=== PATIENT | female | born 1945 | race African-American/Black ===

== ENCOUNTER 2020-08-05 04:29 | Day surgery (SDC) | payer OTHER ==
[2020-08-04 11:24] VITALS: BMI 31.8
[2020-08-05] MEDS ORDERED: HEPARIN NA (PORCINE) 5,000 UNITS/ML 1ML VIAL ONE (07:17)
[2020-08-05] MEDS ORDERED: LIDOCAINE HCL 1%, 10 MG/ML (20ML VIAL) ONE (07:17)
[2020-08-05] MEDS ORDERED: PROPOFOL 20 ML ONE (07:26)
[2020-08-05] MEDS ORDERED: MIDAZOLAM HCL 2 MG/2 ML SINGLE DOSE VIAL ONE (07:26)
[2020-08-05] MEDS ORDERED: DEXTROSE 50%-WATER 25 GM/50 ML DISP.SYRIN ONE (07:39)
[2020-08-05] MEDS ORDERED: LIDOCAINE HCL 1%, 10 MG/ML (20ML VIAL) INF ONE (08:00)
[2020-08-05] MEDS ORDERED: EPHEDRINE SULFATE/0.9% NACL/PF 50 MG/10 ML SYRINGE NR ONE (08:11)
[2020-08-05] MEDS ORDERED: ONDANSETRON 4 MG/2 ML VIAL IVPUSH PRN (09:49)
[2020-08-05 12:39] VITALS: BP 148/67; PULSE 69; TEMP 97.9
== END 2020-08-05 12:05 | disposition home or self-care (01) ==
LOC: JASU-SURG 04:29
PROVIDERS: ATTEND Surgery Vascular Surgery
PROC: 047L3Z1 Dilation of Left Femoral Artery using Drug-Coated Balloon, Percutaneous Approach (ICD-10-PCS; principal; 2020-08-05 07:30)
DX: I70.212 Atherosclerosis of native arteries of extremities with intermittent claudication, left leg (principal); I10 Essential (primary) hypertension; E11.9 Type 2 diabetes mellitus without complications; J44.9 Chronic obstructive pulmonary disease, unspecified; Z79.4 Long term (current) use of insulin
CPT/HCPCS: 37224; C2623; 76000-TC-FY; 82962; 94760; J1644

== ENCOUNTER 2021-02-25 05:55 | Day surgery (SDC) | payer OTHER ==
[2021-02-14 15:59] VITALS: BMI 32.9
[2021-02-25] MEDS ORDERED: ROPIVACAINE HCL/PF 100 MG/20 ML VIAL ONE (06:33)
[2021-02-25] MEDS ORDERED: MIDAZOLAM HCL 2 MG/2 ML SINGLE DOSE VIAL ONE ×2 (06:33→08:03)
[2021-02-25] MEDS ORDERED: EPINEPHrine 1:1,000 1 MG/1 ML - 30ML VIAL (INJECTION) ONE (07:09)
[2021-02-25] MEDS ORDERED: BUPIVACAINE HCL/EPINEPHRINE/PF 30 ML VIAL IJ ONE (07:09)
[2021-02-25] MEDS ORDERED: PROPOFOL 20 ML ONE ×4 (07:16→09:15)
[2021-02-25] MEDS ORDERED: PHENYLEPHRINE HCL 10 MG/1 ML SINGLE DOSE VIAL ONE ×2 (07:16→08:01)
[2021-02-25] MEDS ORDERED: ePHEDrine SULFATE 50 MG/1 ML AMPULE ONE (07:17)
[2021-02-25] MEDS ORDERED: KETAMINE HCL 200 MG/20 ML VIAL ONE (08:05)
[2021-02-25] MEDS ORDERED: BUPIVACAINE 0.25% /EPI 1:200,000 10 ML VIAL NR ONE (08:33)
[2021-02-25] MEDS ORDERED: oxyCODONE HCL 5 MG TABLET PO PRN ×2 (09:17)
[2021-02-25] MEDS ORDERED: ONDANSETRON 4 MG/2 ML VIAL IVPUSH PRN (09:17)
[2021-02-25] MEDS ORDERED: METOPROLOL TARTRATE 5 MG/5 ML VIAL ONE (09:18)
[2021-02-25] MEDS ORDERED: ceFAZolin SODIUM 1 GM VIAL ONE (09:18)
[2021-02-25] MEDS ORDERED: LIDOCAINE HCL/PF 2% SDV 5ML VIAL ONE (09:18)
[2021-02-25] MEDS ORDERED: GLYCOPYRROLATE 0.2 MG/1 ML VIAL ONE (09:18)
[2021-02-25] MEDS ORDERED: LACTATED RINGERS SOLUTION 1,000 ML IV SCH (09:30)
[2021-02-25 12:13] VITALS: TEMP 98.1
[2021-02-25 12:26] VITALS: BP 128/53; PULSE 90
== END 2021-02-25 12:15 | disposition home or self-care (01) ==
LOC: FASU 05:55
PROVIDERS: ATTEND Orthopaedic Surgery
PROC: 0RHK48Z Insertion of Spacer into Left Shoulder Joint, Percutaneous Endoscopic Approach (ICD-10-PCS; 2021-02-25)
PROC: 0LQ24ZZ Repair Left Shoulder Tendon, Percutaneous Endoscopic Approach (ICD-10-PCS; principal; 2021-02-25 08:05)
PROC: 0RNK4ZZ Release Left Shoulder Joint, Percutaneous Endoscopic Approach (ICD-10-PCS; 2021-02-25 08:05)
PROC: 0RBK4ZZ Excision of Left Shoulder Joint, Percutaneous Endoscopic Approach (ICD-10-PCS; 2021-02-25 08:05)
DX: M75.122 Complete rotator cuff tear or rupture of left shoulder, not specified as traumatic (principal); M66.812 Spontaneous rupture of other tendons, left shoulder; S43.432A Superior glenoid labrum lesion of left shoulder, initial encounter; X58.XXXA Exposure to other specified factors, initial encounter; Y93.9 Activity, unspecified; Y92.9 Unspecified place or not applicable; M94.212 Chondromalacia, left shoulder; M65.812 Other synovitis and tenosynovitis, left shoulder; M75.02 Adhesive capsulitis of left shoulder; M19.012 Primary osteoarthritis, left shoulder
CPT/HCPCS: 82962; 94760

== ENCOUNTER 2021-07-20 22:06 | Observation (INO) | payer OTHER ==
[2021-07-20 23:48] LABS: BASO % 0.7 % (0-2.0); EOS % 0.5 % (0-4.5); HEMATOCRIT 38.8 % (32.4-45.2); LYMPH % 19.2 % (8-40); MCH 31.4 pg (25.7-33.7); MCHC 33.6 g/dl (32.0-36.0); MEAN CELL VOLUME 93.2 fl (80-96); MONO % 8.4 % (3.8-10.2); NEUT % 71.2 % (42.8-82.8); PLATELET COUNT 259 10^3/uL (134-434); RBC 4.16 M/mm3 (3.60-5.2); RDW 13.8 % (11.6-15.6); WHITE BLOOD COUNT 8.6 K/mm3 (4.0-10.0)
[2021-07-20] MEDS ORDERED: DEXTROSE 50%-WATER - 25 GM/50 ML VIAL IVPUSH ONE (23:51)
[2021-07-20 23:54] LABS: INR 1.03 (0.83-1.09); PROTHROMBIN TIME (PATIENT) 11.9 SEC (9.7-13.0)
[2021-07-20 23:57] LABS: ACTIVATED PTT 28.6 SECONDS (25.2-36.5)
[2021-07-21 00:05] LABS: CHLORIDE 106 mmol/L (98-107); SODIUM 142 mmol/L (136-145)
[2021-07-21 00:08] LABS: ALBUMIN 3.4 g/dl (3.4-5.0); ANION GAP 6 MMOL/L (8-16); BLOOD UREA NITROGEN 13.4 mg/dL (7-18); CALCIUM 8.9 mg/dL (8.5-10.1); CO2 30 mmol/L (21-32)
[2021-07-21 00:11] LABS: CREATININE 0.5 mg/dL (0.55-1.3); SGOT/AST 30 U/L (15-37); SGPT/ALT 38 U/L (13-61)
[2021-07-21 00:13] LABS: BILIRUBIN,TOTAL 0.2 mg/dL (0.2-1); TOT PROT 7.1 g/dl (6.4-8.2)
[2021-07-21 00:14] LABS: ALK PHOS 116 U/L (45-117)
[2021-07-21 00:16] LABS: N-TERMINAL BNP 204.9 pg/ml (5-450)
[2021-07-21] MEDS ORDERED: DEXTROSE 50%-WATER - 25 GM/50 ML VIAL ONE (00:23)
[2021-07-21 00:47] LABS: GLUCOSE,RANDOM 49 mg/dL (74-106)
[2021-07-21] MEDS ORDERED: ACETAMINOPHEN 1000 MG/100 ML BAG IVPB ONE (00:54)
[2021-07-21] MEDS ORDERED: ACETAMINOPHEN INJECTION 100 ML IVPB ONE (01:16)
[2021-07-21 01:42] LABS: EPI CELLS 18 /uL (0-25.1); HYALINE CASTS 1 /uL (0-3.1); PH,URINE 6.5 (5.0-8.0); URINE APPEARANCE CLEAR; URINE BACTERIA 88 /uL (0-1359); URINE BILIRUBIN NEGATIVE (NEGATIVE); URINE COLOR YELLOW; URINE GLUCOSE (UA) NEGATIVE (NEGATIVE); URINE KETONE NEGATIVE (NEGATIVE); URINE LEUK ESTERASE 1+ (NEGATIVE); URINE NITRITE NEGATIVE (NEGATIVE); URINE PROTEIN 2+ (NEGATIVE); URINE RBC 3 /uL (0-23.9); URINE UROBILINOGEN 0.2 mg/dL (0.2-1.0); URINE WBC 25 /uL (0-25.8)
[2021-07-21] MEDS ORDERED: POTASSIUM CHLORIDE ORAL LIQUID 20 MEQ/15 ML PO ONE ×2 (02:37→03:49)
[2021-07-21] MEDS ORDERED: DEXTROSE 5%-WATER - 1,000 ML IV SCH (04:15)
[2021-07-21] MEDS ORDERED: POTASSIUM CHLORIDE ORAL LIQUID 20 MEQ/15 ML ONE (04:33)
[2021-07-21] MEDS ORDERED: KCL 10 MEQ IVPB 10 MEQ/100 ML INFUS.BAG IVPB ONE (04:33)
[2021-07-21] MEDS ORDERED: ALBUTEROL SO4 HFA INHALER IH PRN (04:56)
[2021-07-21] MEDS: KCL 10 MEQ IVPB 10 MEQ/100 ML INFUS.BAG IVPB SCH ×3 (05:07→10:45)
[2021-07-21 07:50] LABS: BASO % 0.5 % (0-2.0); EOS % 0.3 % (0-4.5); HEMATOCRIT 40.7 % (32.4-45.2); HEMOGLOBIN 13.5 GM/dL (10.7-15.3); LYMPH % 25.4 % (8-40); MCHC 33.1 g/dl (32.0-36.0); MEAN CELL VOLUME 93.8 fl (80-96); MEAN PLT VOLUME 8.1 fl (7.5-11.1); MONO % 7.5 % (3.8-10.2); NEUT % 66.3 % (42.8-82.8); PLATELET COUNT 278 10^3/uL (134-434); RBC 4.34 M/mm3 (3.60-5.2); RDW 14.1 % (11.6-15.6); WHITE BLOOD COUNT 6.4 K/mm3 (4.0-10.0)
[2021-07-21 07:57] LABS: CHLORIDE 109 mmol/L (98-107); SODIUM 142 mmol/L (136-145)
[2021-07-21 08:02] LABS: CHOLESTEROL 149 mg/dL (50-200)
[2021-07-21 08:03] LABS: TRIGLYCERIDES 84 mg/dL (0-150)
[2021-07-21 08:04] LABS: LDL CHOLESTEROL (ONLY SJRH) 77 mg/dL (5-100)
[2021-07-21 08:05] LABS: ALBUMIN 3.4 g/dl (3.4-5.0); ANION GAP 6 MMOL/L (8-16); BLOOD UREA NITROGEN 9.6 mg/dL (7-18); CALCIUM 9.1 mg/dL (8.5-10.1); CO2 28 mmol/L (21-32); GLUCOSE,RANDOM 194 mg/dL (74-106); HDL CHOLESTEROL 62 mg/dL (40-60); MAGNESIUM 2.2 mg/dL (1.8-2.4)
[2021-07-21 08:08] LABS: CREATININE 0.5 mg/dL (0.55-1.3); PHOSPHOROUS 2.8 mg/dL (2.5-4.9); SGPT/ALT 37 U/L (13-61)
[2021-07-21 08:09] LABS: SGOT/AST 29 U/L (15-37)
[2021-07-21 08:10] LABS: BILIRUBIN,TOTAL 0.3 mg/dL (0.2-1); TOT PROT 7.1 g/dl (6.4-8.2)
[2021-07-21 08:11] LABS: ALK PHOS 121 U/L (45-117)
[2021-07-21] MEDS ORDERED: KCL 10 MEQ IVPB 20 MEQ/200 ML INFUS.BAG IVPB ONE (08:17)
[2021-07-21] MEDS ORDERED: amLODIPine BESYLATE 5 MG TABLET (FP) ONE (08:58)
[2021-07-21] MEDS ORDERED: VALSARTAN 80 MG TABLET ONE (08:58)
[2021-07-21] MEDS ORDERED: ASPIRIN COATED 81 MG TABLET.EC ONE (08:58)
[2021-07-21] MEDS ORDERED: ENOXAPARIN NA (PORCINE) 40 MG/0.4 ML DISP.SYRIN SQ ONE (08:59)
[2021-07-21] MEDS ORDERED: GABAPENTIN 400 MG CAPSULE ONE ×3 (08:59→16:32)
[2021-07-21] MEDS ORDERED: metoPROLOL SUCCINATE 25 MG TAB.SR.24H (FP) PO ONE (09:00)
[2021-07-21] MEDS ORDERED: CLOPIDOGREL BISULFATE 75 MG TABLET (FP) ONE (09:00)
[2021-07-21] MEDS ORDERED: ASCORBIC ACID 500 MG TABLET (FP) ONE (09:01)
[2021-07-21] MEDS: CLOPIDOGREL BISULFATE 75 MG TABLET (FP) PO SCH (10:50)
[2021-07-21] MEDS: ENOXAPARIN NA (PORCINE) 40 MG/0.4 ML DISP.SYRIN SQ SCH (10:50)
[2021-07-21] MEDS: metoPROLOL SUCCINATE 25 MG TAB.SR.24H (FP) PO SCH (10:50)
[2021-07-21] MEDS: ASPIRIN COATED 81 MG TABLET.EC PO SCH (10:50)
[2021-07-21] MEDS: ASCORBIC ACID 500 MG TABLET (FP) PO SCH (10:50)
[2021-07-21] MEDS: amLODIPine BESYLATE 5 MG TABLET (FP) PO SCH ×2 (10:50→21:09)
[2021-07-21] MEDS: GABAPENTIN 400 MG CAPSULE PO SCH ×4 (10:50→21:09)
[2021-07-21] MEDS: BUDESONIDE/FORMETEROL FUMARATE 160/4.5 mcg INHALER IH SCH ×2 (10:50→22:25)
[2021-07-21] MEDS ORDERED: DEXTROSE 50%-WATER - 25 GM/50 ML VIAL IVPUSH PRN (15:17)
[2021-07-21] MEDS ORDERED: ACETAMINOPHEN 325 MG TABLET (FP) ONE (15:29)
[2021-07-21] MEDS: ACETAMINOPHEN 325 MG TABLET (FP) PO PRN ×2 (15:40→21:08)
[2021-07-21] MEDS ORDERED: INSULIN SLIDING SCALE (NOVOLOG) 1 VIAL SQ SCH (16:30)
[2021-07-21] MEDS: INSULIN SLIDING SCALE (NOVOLOG) 1 VIAL SQ SCH (17:03)
[2021-07-21 18:08] VITALS: BMI 31.9
[2021-07-21] MEDS ORDERED: LATANOPROST 0.005% OPHTH SOLN 2.5ML BOTTLE OU SCH (22:00)
[2021-07-21] MEDS ORDERED: ATORVASTATIN CA 10 MG TABLET (FP) PO SCH (22:00)
[2021-07-22] MEDS ORDERED: ACETAMINOPHEN 325 MG TABLET (FP) PO ONE (05:45)
[2021-07-22] MEDS ORDERED: oxyCODONE HCL 5 MG TABLET PO ONE (05:45)
[2021-07-22] MEDS: INSULIN (LEVEMIR) 100 UNITS/ML UNITS SQ SCH ×2 (06:13→11:37)
[2021-07-22] MEDS: INSULIN SLIDING SCALE (NOVOLOG) 1 VIAL SQ SCH ×2 (06:14→11:37)
[2021-07-22] MEDS ORDERED: INSULIN (NOVOLOG) ASPART 100 UNITS/ML 10ML VIAL SQ SCH (08:00)
[2021-07-22 08:52] LABS: BASO % 0.6 % (0-2.0); EOS % 0.8 % (0-4.5); HEMATOCRIT 40.5 % (32.4-45.2); HEMOGLOBIN 13.6 GM/dL (10.7-15.3); LYMPH % 32.8 % (8-40); MCHC 33.5 g/dl (32.0-36.0); MEAN CELL VOLUME 92.6 fl (80-96); MEAN PLT VOLUME 7.5 fl (7.5-11.1); MONO % 9.1 % (3.8-10.2); NEUT % 56.7 % (42.8-82.8); PLATELET COUNT 288 10^3/uL (134-434); RBC 4.37 M/mm3 (3.60-5.2); RDW 14.2 % (11.6-15.6); WHITE BLOOD COUNT 5.6 K/mm3 (4.0-10.0)
[2021-07-22] MEDS: amLODIPine BESYLATE 5 MG TABLET (FP) PO SCH (09:08)
[2021-07-22] MEDS: ASCORBIC ACID 500 MG TABLET (FP) PO SCH (09:08)
[2021-07-22] MEDS: CLOPIDOGREL BISULFATE 75 MG TABLET (FP) PO SCH (09:08)
[2021-07-22] MEDS: metoPROLOL SUCCINATE 25 MG TAB.SR.24H (FP) PO SCH (09:08)
[2021-07-22] MEDS: ASPIRIN COATED 81 MG TABLET.EC PO SCH (09:08)
[2021-07-22] MEDS: GABAPENTIN 400 MG CAPSULE PO SCH ×2 (09:09→13:20)
[2021-07-22] MEDS: ENOXAPARIN NA (PORCINE) 40 MG/0.4 ML DISP.SYRIN SQ SCH (09:09)
[2021-07-22] MEDS ORDERED: PATIENT'S OWN MEDICATION (NON-FORMULARY) (Oxycodone Hcl/Acetaminophen [Endocet 10-325 Mg T PO PRN (09:09)
[2021-07-22] MEDS: BUDESONIDE/FORMETEROL FUMARATE 160/4.5 mcg INHALER IH SCH (09:10)
[2021-07-22 09:12] LABS: BLOOD UREA NITROGEN 9.4 mg/dL (7-18)
[2021-07-22 09:15] LABS: CREATININE 0.5 mg/dL (0.55-1.3)
[2021-07-22] MEDS ORDERED: oxyCODONE HCL 5 MG TABLET PO PRN (09:45)
[2021-07-22] MEDS ORDERED: ACETAMINOPHEN 325 MG TABLET (FP) PO PRN (09:45)
[2021-07-22] MEDS ORDERED: ERGOCALCIFEROL (VIT D2) 50,000 UNIT (1.25 MG) CAPSULE PO SCH (10:00)
[2021-07-22 14:23] VITALS: BP 138/69; PULSE 76; TEMP 97.9
== END 2021-07-22 18:46 | disposition home or self-care (01) ==
LOC: JER 22:06 → JERBED 07-21 01:41 → J4S 07-21 18:55
PROVIDERS: ADMIT Internal Medicine; ATTEND Internal Medicine
PROC: 3E0337Z Introduction of Electrolytic and Water Balance Substance into Peripheral Vein, Percutaneous Approach (ICD-10-PCS; principal; 2021-07-21)
PROC: 3E023GC Introduction of Other Therapeutic Substance into Muscle, Percutaneous Approach (ICD-10-PCS; 2021-07-21)
PROC: 3E013VG Introduction of Insulin into Subcutaneous Tissue, Percutaneous Approach (ICD-10-PCS; 2021-07-21)
PROC: 3E033GC Introduction of Other Therapeutic Substance into Peripheral Vein, Percutaneous Approach (ICD-10-PCS; 2021-07-21)
DX: U07.1 COVID-19 (principal); I25.10 Atherosclerotic heart disease of native coronary artery without angina pectoris; I11.9 Hypertensive heart disease without heart failure; Z95.1 Presence of aortocoronary bypass graft; I73.9 Peripheral vascular disease, unspecified; E11.9 Type 2 diabetes mellitus without complications; R55 Syncope and collapse; E66.9 Obesity, unspecified; Z68.32 Body mass index [BMI] 32.0-32.9, adult; Z91.048 Other nonmedicinal substance allergy status; Z88.0 Allergy status to penicillin; Z88.6 Allergy status to analgesic agent; Z88.8 Allergy status to other drugs, medicaments and biological substances
CPT/HCPCS: 0241U-QW; 36415; 70450-TC; 71045-TC-FY; 72125-TC; 80048; 80053; 80061; 81003; 82550; 82553; 82962; 83036; 83735; 83880; 84100; 84443; 84484; 85025; 85610; 85730; 86140; 93005; 93010; 96361; 96365; 96367; 96372; 96375; 99285-25; G0378

== ENCOUNTER 2021-09-09 04:08 | Day surgery (SDC) | payer OTHER ==
[2021-09-07 10:49] VITALS: BMI 32.1
[2021-09-09] MEDS ORDERED: BUPIVACAINE HCL/PF 0.75% 10 ML VIAL ONE (07:24)
[2021-09-09] MEDS ORDERED: LIDOCAINE HCL/PF 1% SDV 5ML VIAL ONE (07:24)
[2021-09-09 09:28] VITALS: RESP 20
[2021-09-09] MEDS ORDERED: BUPIVACAINE HCL/PF 0.75% 10 ML VIAL NR ONE (12:00)
[2021-09-09] MEDS ORDERED: LIDOCAINE HCL 1%, 10 MG/ML (20ML VIAL) NR ONE (12:01)
[2021-09-09 12:18] VITALS: BP 159/72; PULSE 66; TEMP 98
== END 2021-09-09 12:46 | disposition home or self-care (01) ==
LOC: JASU-SURG 04:08
PROVIDERS: ATTEND Pain Medicine Pain Medicine
PROC: 3E0T33Z Introduction of Anti-inflammatory into Peripheral Nerves and Plexi, Percutaneous Approach (ICD-10-PCS; 2021-09-09)
PROC: 3E0T3BZ Introduction of Anesthetic Agent into Peripheral Nerves and Plexi, Percutaneous Approach (ICD-10-PCS; principal; 2021-09-09 11:30)
DX: M47.816 Spondylosis without myelopathy or radiculopathy, lumbar region (principal)
CPT/HCPCS: 76000-TC-FY

== ENCOUNTER 2021-10-11 04:29 | Day surgery (SDC) | payer OTHER ==
[2021-10-07 16:15] VITALS: BMI 31.8
[2021-10-11] MEDS ORDERED: BUPIVACAINE HCL/PF 0.75% 10 ML VIAL ONE (07:17)
[2021-10-11] MEDS ORDERED: LIDOCAINE HCL/PF 1% SDV 5ML VIAL ONE (07:17)
[2021-10-11 11:32] VITALS: TEMP 97.7
[2021-10-11] MEDS ORDERED: LIDOCAINE HCL 1% PRESERVATIVE FREE - 30ML VIAL IJ ONE (12:55)
[2021-10-11] MEDS ORDERED: BUPIVACAINE HCL/PF 0.75% 10 ML VIAL NR ONE (12:55)
[2021-10-11 14:59] VITALS: BP 112/55; PULSE 67; RESP 18
== END 2021-10-11 13:45 | disposition home or self-care (01) ==
LOC: JASU-SURG 04:29
PROVIDERS: ATTEND Pain Medicine Pain Medicine
PROC: BR16YZZ Fluoroscopy of Lumbar Facet Joint(s) using Other Contrast (ICD-10-PCS; 2021-10-11)
PROC: 3E0T3BZ Introduction of Anesthetic Agent into Peripheral Nerves and Plexi, Percutaneous Approach (ICD-10-PCS; principal; 2021-10-11 13:00)
DX: M47.816 Spondylosis without myelopathy or radiculopathy, lumbar region (principal)
CPT/HCPCS: 76000-TC-FY

== ENCOUNTER → 2021-11-25 | Day surgery (SDC) | payer OTHER ==
[~2021-11-25] MED LIST: BUPIVACAINE HCL/PF 0.75% 10 ML VIAL ONE; DEXAMETHASONE SOD PHOSPHATE 10 MG/1 ML VIAL ONE; LIDOCAINE HCL/PF 1% SDV 5ML VIAL ONE
== END | disposition home or self-care (01) ==
LOC: JASU-SURG 04:07
PROVIDERS: ATTEND Pain Medicine Pain Medicine
DX: Z53.8 Procedure and treatment not carried out for other reasons (principal)
CPT/HCPCS: J1100

== ENCOUNTER 2022-11-16 04:56 | Day surgery (SDC) | payer OTHER ==
[2022-11-15 11:52] VITALS: BMI 24.7
[2022-11-16] MEDS ORDERED: ceFAZolin SODIUM 1 GM VIAL IVPB ONE (08:28)
[2022-11-16] MEDS ORDERED: IOVERSOL 320 MG/ML ML IV ONE ×2 (08:30→10:55)
[2022-11-16] MEDS ORDERED: LIDOCAINE HCL 1%, 10 MG/ML (20ML VIAL) INF ONE ×2 (08:30→10:47)
[2022-11-16] MEDS ORDERED: HEPARIN NA (PORCINE) 5,000 UNITS/ML 1ML VIAL SQ ONE ×2 (08:31→10:55)
[2022-11-16] MEDS ORDERED: LIDOCAINE HCL 1%, 10 MG/ML (20ML VIAL) ONE ×2 (09:23→10:21)
[2022-11-16] MEDS ORDERED: HEPARIN NA (PORCINE) 5,000 UNITS/ML 1ML VIAL ONE ×2 (09:24→10:21)
[2022-11-16] MEDS ORDERED: DEXMEDETOMIDINE HCL 200 MCG/2 ML IVPB ONE (10:20)
[2022-11-16] MEDS ORDERED: ceFAZolin SODIUM 1 GM VIAL ONE (10:26)
[2022-11-16] MEDS ORDERED: SODIUM CHLORIDE 0.9% P/F 10 ML VIAL IJ ONE (10:26)
[2022-11-16] MEDS ORDERED: MIDAZOLAM HCL 2 MG/2 ML SINGLE DOSE VIAL ONE ×2 (10:42→10:51)
[2022-11-16] MEDS ORDERED: ONDANSETRON 4 MG/2 ML VIAL ONE (11:09)
[2022-11-16] MEDS ORDERED: PROTAMINE SULFATE 50 MG/5 ML VIAL ONE (11:28)
[2022-11-16] MEDS ORDERED: LACTATED RINGERS SOLUTION 1,000 ML IV SCH (12:00)
[2022-11-16 14:39] VITALS: RESP 20
[2022-11-16 15:59] VITALS: TEMP 97.8
[2022-11-16 16:05] VITALS: BP 122/60; PULSE 70
== END 2022-11-16 15:15 | disposition home or self-care (01) ==
LOC: JASU-SURG 04:56
PROVIDERS: ATTEND Surgery Vascular Surgery
PROC: 047L3Z1 Dilation of Left Femoral Artery using Drug-Coated Balloon, Percutaneous Approach (ICD-10-PCS; principal; 2022-11-16 10:30)
DX: I70.212 Atherosclerosis of native arteries of extremities with intermittent claudication, left leg (principal)
CPT/HCPCS: 37225; C2623; 36415; 76000-TC-FY; 82010; 82962; 94760; C1724; C1769; J1644

== ENCOUNTER 2023-07-24 12:57 | Inpatient (IN) | payer OTHER ==
[2023-07-24] MEDS ORDERED: ONDANSETRON 4 MG/2 ML VIAL ONE (13:48)
[2023-07-24] MEDS ORDERED: ACETAMINOPHEN INJECTION 100 ML IVPB ONE (13:48)
[2023-07-24] MEDS: ACETAMINOPHEN 1000 MG/100 ML BAG IVPB ONE (14:14)
[2023-07-24] MEDS: ONDANSETRON 4 MG/2 ML VIAL IVPUSH ONE (14:15)
[2023-07-24] MEDS: SODIUM CHLORIDE 1,000 ML IV STA ×2 (14:40→18:57)
[2023-07-24 14:48] LABS: HEMATOCRIT 48.2 % (32.4-45.2); HEMOGLOBIN 16.4 GM/dL (10.7-15.3); MCH 32.8 pg (25.7-33.7); MEAN CELL VOLUME 96.4 fl (80-96); MEAN PLT VOLUME 8.4 fl (7.5-11.1); PLATELET COUNT 248 10^3/uL (134-434); RDW 14.2 % (11.6-15.6); VENOUS O2 SATURATION 75.8 % (70-80); VENOUS PCO2 35.6 mmHg (38-52); VENOUS PH 7.358 (7.310-7.410); WHITE BLOOD COUNT 15.7 K/mm3 (4.0-10.0)
[2023-07-24 14:59] LABS: INR 1.09 (0.83-1.09); PROTHROMBIN TIME (PATIENT) 12.3 SEC (9.7-13.0)
[2023-07-24 15:02] LABS: ACTIVATED PTT 21.2 SECONDS (25.2-36.5)
[2023-07-24 15:09] LABS: CHLORIDE 100 mmol/L (98-107); POTASSIUM 4.9 mmol/L (3.5-5.1); SODIUM 137 mmol/L (136-145)
[2023-07-24 15:12] LABS: ANION GAP 17 mmol/L (4-13); CALCIUM 10.3 mg/dL (8.5-10.1); CO2 20 mmol/L (21-32); GLUCOSE,RANDOM 136 mg/dL (74-106)
[2023-07-24 15:13] LABS: ALBUMIN 4.4 g/dl (3.4-5.0); BLOOD UREA NITROGEN 12.3 mg/dL (7-18)
[2023-07-24 15:15] LABS: CREATININE 0.6 mg/dL (0.55-1.3); SGOT/AST 40 U/L (15-37); SGPT/ALT 30 U/L (13-61)
[2023-07-24 15:17] LABS: TOT PROT 8.4 g/dl (6.4-8.2)
[2023-07-24 15:18] LABS: ALK PHOS 166 U/L (45-117)
[2023-07-24 15:19] LABS: LACTIC ACID 2.2 mmol/L (0.4-2.0)
[2023-07-24 15:25] LABS: ANISOCYTOSIS 0; MACROCYTOSIS 0
[2023-07-24 15:27] LABS: PLATELET ESTIMATE ADEQUATE
[2023-07-24 17:22] LABS: EPI CELLS 3 /uL (0-25.1); HYALINE CASTS 0 /uL (0-3.1); URINE APPEARANCE CLEAR; URINE BACTERIA 75 /uL (0-1359); URINE BILIRUBIN NEGATIVE (NEGATIVE); URINE COLOR YELLOW; URINE GLUCOSE (UA) 3+ (NEGATIVE); URINE KETONE 4+ (NEGATIVE); URINE LEUK ESTERASE NEGATIVE (NEGATIVE); URINE NITRITE NEGATIVE (NEGATIVE); URINE PROTEIN 2+ (NEGATIVE); URINE RBC 6 /uL (0-23.9); URINE UROBILINOGEN 0.2 mg/dL (0.2-1.0); URINE WBC 4 /uL (0-25.8)
[2023-07-24] MEDS: INSULIN ASPART SLIDING SCALE (NOVOLOG) 1 VIAL SQ SCH (22:32)
[2023-07-25] MEDS: SODIUM CHLORIDE 1,000 ML IV SCH (00:30)
[2023-07-25] MEDS: GABAPENTIN 400 MG CAPSULE PO SCH (00:30)
[2023-07-25] MEDS: ACETAMINOPHEN 1000 MG/100 ML BAG IVPB PRN (00:53)
[2023-07-25 02:16] VITALS: BMI 21.9
[2023-07-25 07:25] LABS: HEMATOCRIT 42.6 % (32.4-45.2); HEMOGLOBIN 14.2 GM/dL (10.7-15.3); MCH 32.2 pg (25.7-33.7); MCHC 33.3 g/dl (32.0-36.0); MEAN PLT VOLUME 8.4 fl (7.5-11.1); PLATELET COUNT 251 10^3/uL (134-434); RBC 4.39 M/mm3 (3.60-5.2); WHITE BLOOD COUNT 22.6 K/mm3 (4.0-10.0)
[2023-07-25 07:32] LABS: POTASSIUM 3.2 mmol/L (3.5-5.1)
[2023-07-25 07:36] LABS: CALCIUM 9.3 mg/dL (8.5-10.1)
[2023-07-25 07:37] LABS: BLOOD UREA NITROGEN 15.7 mg/dL (7-18); MAGNESIUM 2.2 mg/dL (1.8-2.4)
[2023-07-25 07:40] LABS: CREATININE 0.5 mg/dL (0.55-1.3)
[2023-07-25 07:41] LABS: BILIRUBIN,TOTAL 0.9 mg/dL (0.2-1); TOT PROT 6.5 g/dl (6.4-8.2)
[2023-07-25 07:43] LABS: ALBUMIN 3.3 g/dl (3.4-5.0)
[2023-07-25] MEDS: KCL 10 MEQ IVPB 10 MEQ/100 ML INFUS.BAG IVPB SCH (08:56)
[2023-07-25] MEDS: ONDANSETRON 4 MG/2 ML VIAL IVPUSH PRN (09:15)
[2023-07-25] MEDS: AZTREONAM 1 GM in DEXTROSE 5%-WATER - 50 ML IVPB ONE (09:15)
[2023-07-25] MEDS: amLODIPine BESYLATE 5 MG TABLET (FP) PO SCH (09:15)
[2023-07-25] MEDS: CLOPIDOGREL BISULFATE 75 MG TABLET (FP) PO SCH (09:15)
[2023-07-25] MEDS: metoPROLOL SUCCINATE 25 MG TAB.SR.24H (FP) PO SCH (09:15)
[2023-07-25] MEDS: ASPIRIN COATED 81 MG TABLET.EC PO SCH (09:16)
[2023-07-25 12:20] VITALS: RESP 18
[2023-07-25] MEDS: ACETAMINOPHEN 1000 MG/100 ML BAG IVPB SCH (12:56)
[2023-07-25] MEDS: FAMOTIDINE 20 MG/50 ML IVPB 20 MG/50 ML MG IVPB ONE (15:14)
[2023-07-25] MEDS: DEXTROSE 5%-0.45% SALINE 1,000 ML IV SCH (17:01)
[2023-07-25 17:37] LABS: POTASSIUM 3.6 mmol/L (3.5-5.1)
[2023-07-25 17:41] LABS: BLOOD UREA NITROGEN 18.2 mg/dL (7-18); CALCIUM 9.5 mg/dL (8.5-10.1)
[2023-07-25 17:42] LABS: ALBUMIN 3.2 g/dl (3.4-5.0)
[2023-07-25 17:45] LABS: CREATININE 0.6 mg/dL (0.55-1.3)
[2023-07-25 17:46] LABS: BILIRUBIN,TOTAL 0.8 mg/dL (0.2-1); TOT PROT 6.4 g/dl (6.4-8.2)
[2023-07-25] MEDS: MEROPENEM 1 GM in DEXTROSE 5%-WATER 100 ML IVPB SCH (18:05)
[2023-07-25] MEDS: POTASSIUM CHLORIDE ORAL LIQUID 20 MEQ/15 ML PO ONE (18:05)
[2023-07-25] MEDS: ATORVASTATIN CA 10 MG TABLET (FP) PO SCH (21:34)
[2023-07-25] MEDS: LATANOPROST 0.005% OPHTH SOLN 2.5ML BOTTLE OU SCH (22:08)
[2023-07-25 22:11] LABS: POTASSIUM 3.6 mmol/L (3.5-5.1)
[2023-07-25 22:13] LABS: BLOOD UREA NITROGEN 16.9 mg/dL (7-18); CALCIUM 9.3 mg/dL (8.5-10.1)
[2023-07-25 22:17] LABS: CREATININE 0.6 mg/dL (0.55-1.3)
[2023-07-26 10:47] LABS: HEMATOCRIT 41.6 % (32.4-45.2); MCH 32.6 pg (25.7-33.7); MCHC 33.7 g/dl (32.0-36.0); MEAN CELL VOLUME 96.6 fl (80-96); MEAN PLT VOLUME 8.2 fl (7.5-11.1); PLATELET COUNT 230 10^3/uL (134-434); RBC 4.31 M/mm3 (3.60-5.2); RDW 14.3 % (11.6-15.6); WHITE BLOOD COUNT 17.7 K/mm3 (4.0-10.0)
[2023-07-26 11:08] LABS: POTASSIUM 3.4 mmol/L (3.5-5.1)
[2023-07-26 11:29] LABS: ALBUMIN 2.8 g/dl (3.4-5.0); BLOOD UREA NITROGEN 14.8 mg/dL (7-18)
[2023-07-26 11:30] LABS: CALCIUM 9.4 mg/dL (8.5-10.1); MAGNESIUM 2.1 mg/dL (1.8-2.4)
[2023-07-26 11:32] LABS: CREATININE 0.5 mg/dL (0.55-1.3); PHOSPHOROUS 1.3 mg/dL (2.5-4.9)
[2023-07-26 11:33] LABS: BILIRUBIN,TOTAL 1.2 mg/dL (0.2-1); TOT PROT 5.7 g/dl (6.4-8.2)
[2023-07-26] MEDS: HYDROmorphone HCl 2 MG/ML VIAL IVPB ONE (11:46)
[2023-07-26] MEDS: FAMOTIDINE 20 MG/50 ML IVPB 20 MG/50 ML MG IVPB SCH (11:55)
[2023-07-26 14:22] LABS: BILIRUBIN,DIRECT 0.2 mg/dL (0.0-0.2)
[2023-07-26] MEDS ORDERED: HYDROmorphone HCl 2 MG/ML VIAL IVPB PRN (15:00)
[2023-07-26] MEDS: POTASSIUM PHOSPHATE 30 MM in DEXTROSE 5%-WATER - 500 ML IVPB ONE (15:37)
[2023-07-26] MEDS: HYDROmorphone HCl 2 MG/ML VIAL IVPB PRN (17:06)
[2023-07-26] MEDS ORDERED: INSULIN ASPART SLIDING SCALE (NOVOLOG) 1 VIAL SQ ONE (17:12)
[2023-07-26 18:39] LABS: POTASSIUM 3.6 mmol/L (3.5-5.1)
[2023-07-26 18:45] LABS: CREATININE 0.4 mg/dL (0.55-1.3); PHOSPHOROUS 1.7 mg/dL (2.5-4.9)
[2023-07-26] MEDS ORDERED: FAMOTIDINE 20 MG/50 ML IVPB 20 MG/50 ML MG IVPB SCH (22:00)
[2023-07-27 09:03] LABS: HEMATOCRIT 39.9 % (32.4-45.2); HEMOGLOBIN 13.3 GM/dL (10.7-15.3); MCH 32.1 pg (25.7-33.7); MCHC 33.5 g/dl (32.0-36.0); MEAN CELL VOLUME 95.9 fl (80-96); MEAN PLT VOLUME 8.4 fl (7.5-11.1); PLATELET COUNT 203 10^3/uL (134-434); RBC 4.16 M/mm3 (3.60-5.2); RDW 14.3 % (11.6-15.6); WHITE BLOOD COUNT 12.7 K/mm3 (4.0-10.0)
[2023-07-27 09:16] LABS: CHLORIDE 110 mmol/L (98-107); POTASSIUM 3.7 mmol/L (3.5-5.1); SODIUM 140 mmol/L (136-145)
[2023-07-27 09:19] LABS: CALCIUM 8.5 mg/dL (8.5-10.1)
[2023-07-27 09:20] LABS: ALBUMIN 2.2 g/dl (3.4-5.0); ANION GAP 6 mmol/L (4-13); BLOOD UREA NITROGEN 14.3 mg/dL (7-18); CO2 24 mmol/L (21-32); GLUCOSE,RANDOM 188 mg/dL (74-106)
[2023-07-27 09:23] LABS: CREATININE 0.5 mg/dL (0.55-1.3); SGOT/AST 8 U/L (15-37); SGPT/ALT 14 U/L (13-61)
[2023-07-27 09:25] LABS: TOT PROT 4.8 g/dl (6.4-8.2)
[2023-07-27 09:26] LABS: ALK PHOS 93 U/L (45-117)
[2023-07-27] MEDS: ACETAMINOPHEN 1000 MG/100 ML BAG IVPB ONE (09:56)
[2023-07-27] MEDS: POTASSIUM PHOSPHATE 30 MM in DEXTROSE 5%-WATER - 500 ML IVPB ONE ×2 (12:18→17:00)
[2023-07-27] MEDS: AMINO ACIDS 4.25%/D5W 1,000 ML IV SCH (12:21)
[2023-07-27] MEDS: SUCRALFATE 1 GM/10 ML UNIT DOSE CUPS PO SCH (14:00)
[2023-07-27 16:50] LABS: MAGNESIUM 1.5 mg/dL (1.8-2.4)
[2023-07-27 16:53] LABS: PHOSPHOROUS 1.3 mg/dL (2.5-4.9)
[2023-07-27] MEDS: MAGNESIUM SULF 50% (8.12 MEQ/2 ML-1 GM VIAL) IVPB ONE (18:05)
[2023-07-27 18:41] LABS: EPI CELLS 8 /uL (0-25.1); HYALINE CASTS 0 /uL (0-3.1); PH,URINE 6.5 (5.0-8.0); URINE APPEARANCE CLEAR; URINE BILIRUBIN NEGATIVE (NEGATIVE); URINE COLOR DK YELLOW; URINE GLUCOSE (UA) 2+ (NEGATIVE); URINE KETONE TRACE (NEGATIVE); URINE LEUK ESTERASE NEGATIVE (NEGATIVE); URINE NITRITE POSITIVE (NEGATIVE); URINE PROTEIN TRACE (NEGATIVE); URINE RBC 21 /uL (0-23.9); URINE UROBILINOGEN 0.2 mg/dL (0.2-1.0); URINE WBC 11 /uL (0-25.8)
[2023-07-27 20:52] LABS: URINE BACTERIA 0.9 /uL (0-1359)
[2023-07-27] MEDS: PANTOPRAZOLE 40 MG TABLET PO SCH (21:22)
[2023-07-27] MEDS: INSULIN (LEVEMIR) 100 UNITS/ML UNITS SQ SCH (21:26)
[2023-07-27 22:35] LABS: CHLORIDE 89 mmol/L (98-107); POTASSIUM 3.2 mmol/L (3.5-5.1)
[2023-07-27 22:38] LABS: BLOOD UREA NITROGEN 13.8 mg/dL (7-18); MAGNESIUM 1.8 mg/dL (1.8-2.4)
[2023-07-27 22:41] LABS: CREATININE 0.5 mg/dL (0.55-1.3); PHOSPHOROUS 1.2 mg/dL (2.5-4.9)
[2023-07-27 22:45] LABS: ANION GAP 9 mmol/L (4-13); CALCIUM 6.6 mg/dL (8.5-10.1); CO2 21 mmol/L (21-32); GLUCOSE,RANDOM 716 mg/dL (74-106); SODIUM 120 mmol/L (136-145)
[2023-07-28 11:40] LABS: HEMATOCRIT 41.5 % (32.4-45.2); HEMOGLOBIN 13.8 GM/dL (10.7-15.3); MCH 32.2 pg (25.7-33.7); MCHC 33.3 g/dl (32.0-36.0); MEAN CELL VOLUME 96.8 fl (80-96); MEAN PLT VOLUME 8.1 fl (7.5-11.1); PLATELET COUNT 198 10^3/uL (134-434); RBC 4.29 M/mm3 (3.60-5.2); WHITE BLOOD COUNT 8.9 K/mm3 (4.0-10.0)
[2023-07-28 11:59] LABS: POTASSIUM 3.8 mmol/L (3.5-5.1)
[2023-07-28 12:03] LABS: ALBUMIN 2.4 g/dl (3.4-5.0); BLOOD UREA NITROGEN 12.8 mg/dL (7-18)
[2023-07-28 12:06] LABS: CREATININE 0.4 mg/dL (0.55-1.3); PHOSPHOROUS 1.4 mg/dL (2.5-4.9)
[2023-07-28 12:08] LABS: BILIRUBIN,TOTAL 0.6 mg/dL (0.2-1); TOT PROT 5.4 g/dl (6.4-8.2)
[2023-07-28] MEDS: NAPH,MB-DB/K PH,MBDB POWDER PACKET PO ONE (17:37)
[2023-07-28] MEDS: SIMETHICONE 80 MG TAB.CHEW (FP) PO SCH (17:38)
[2023-07-28] MEDS: POTASSIUM PHOSPHATE 30 MM in DEXTROSE 5%-WATER - 500 ML IVPB ONE (20:19)
[2023-07-28] MEDS: MELATONIN 5 MG TABLETS PO ONE (21:46)
[2023-07-28] MEDS: RIFAXIMIN 550 MG TABLET PO SCH (21:47)
[2023-07-29] MEDS: NAPH,MB-DB/K PH,MBDB POWDER PACKET PO SCH (09:39)
[2023-07-29] MEDS: ENOXAPARIN NA (PORCINE) 40 MG/0.4 ML DISP.SYRIN SQ SCH (09:39)
[2023-07-29 10:06] LABS: POTASSIUM 4.1 mmol/L (3.5-5.1)
[2023-07-29 10:15] LABS: BLOOD UREA NITROGEN 6.4 mg/dL (7-18); MAGNESIUM 1.7 mg/dL (1.8-2.4)
[2023-07-29 10:18] LABS: PHOSPHOROUS 2.3 mg/dL (2.5-4.9)
[2023-07-29 10:19] LABS: CREATININE 0.2 mg/dL (0.55-1.3)
[2023-07-29] MEDS: MAGNESIUM 1GM/D5W 100ML - 100 ML IVPB IVPB ONE (12:28)
[2023-07-29] MEDS: POTASSIUM PHOSPHATE 30 MM in DEXTROSE 5%-WATER - 500 ML IVPB ONE (14:34)
[2023-07-29 19:38] LABS: POTASSIUM 4.3 mmol/L (3.5-5.1)
[2023-07-29 19:39] LABS: CALCIUM 7.9 mg/dL (8.5-10.1)
[2023-07-29 19:40] LABS: BLOOD UREA NITROGEN 7.1 mg/dL (7-18); MAGNESIUM 1.8 mg/dL (1.8-2.4)
[2023-07-29 19:43] LABS: PHOSPHOROUS 3.1 mg/dL (2.5-4.9)
[2023-07-29 19:51] LABS: CREATININE 0.4 mg/dL (0.55-1.3)
[2023-07-30 06:46] VITALS: BP 127/58; PULSE 77; TEMP 98.1
[2023-07-30 09:44] LABS: POTASSIUM 4.1 mmol/L (3.5-5.1)
[2023-07-30 09:48] LABS: ALBUMIN 2.4 g/dl (3.4-5.0); CALCIUM 8.6 mg/dL (8.5-10.1)
[2023-07-30 09:50] LABS: CREATININE 0.4 mg/dL (0.55-1.3)
[2023-07-30 09:52] LABS: BILIRUBIN,TOTAL 0.5 mg/dL (0.2-1); TOT PROT 5.4 g/dl (6.4-8.2)
== END 2023-07-30 14:26 | disposition home or self-care (01) | DRG 389 ==
LOC: JER 12:57 → JERBED 21:30 → J6S 23:35
PROVIDERS: ADMIT Internal Medicine; ATTEND Internal Medicine
DX: K56.600 Partial intestinal obstruction, unspecified as to cause (principal); E87.20 Acidosis, unspecified; K55.9 Vascular disorder of intestine, unspecified; R04.2 Hemoptysis; K56.7 Ileus, unspecified; E11.51 Type 2 diabetes mellitus with diabetic peripheral angiopathy without gangrene; I10 Essential (primary) hypertension; I73.9 Peripheral vascular disease, unspecified; E78.00 Pure hypercholesterolemia, unspecified; E78.5 Hyperlipidemia, unspecified; R33.9 Retention of urine, unspecified; I25.10 Atherosclerotic heart disease of native coronary artery without angina pectoris; Z95.1 Presence of aortocoronary bypass graft; E83.39 Other disorders of phosphorus metabolism; E87.6 Hypokalemia
CPT/HCPCS: 0241U-QW; 36415; 71045-TC-FY; 74019-TC-FY; 74174-TC; 74177-TC; 76705-TC; 80048; 80053; 81003; 82010; 82248; 82803; 82962; 83036; 83605; 83690; 83735; 84100; 84484; 85025; 85027; 85610; 85730; 86850; 86900; 86901; 87040; 87086; 93005; 93010; 97116-GP; 97162-GP; 99285-25; J0131; Q9967

== ENCOUNTER 2023-08-06 13:16 | Emergency (ER) | payer OTHER ==
[2023-08-06 13:22] VITALS: BP 118/54; PULSE 88; RESP 18; TEMP 97.8; BMI 23.9
[2023-08-06 14:59] LABS: BASO % 0.6 % (0-2.0); EOS % 0.1 % (0-4.5); HEMATOCRIT 40.5 % (32.4-45.2); HEMOGLOBIN 13.6 GM/dL (10.7-15.3); LYMPH % 16.8 % (8-40); MCH 32.4 pg (25.7-33.7); MCHC 33.6 g/dl (32.0-36.0); MEAN CELL VOLUME 96.2 fl (80-96); MEAN PLT VOLUME 7.4 fl (7.5-11.1); MONO % 10.7 % (3.8-10.2); NEUT % 71.8 % (42.8-82.8); PLATELET COUNT 468 10^3/uL (134-434); RBC 4.21 M/mm3 (3.60-5.2); RDW 13.7 % (11.6-15.6); WHITE BLOOD COUNT 12.4 K/mm3 (4.0-10.0)
[2023-08-06 15:18] LABS: POTASSIUM 3.9 mmol/L (3.5-5.1)
[2023-08-06 15:21] LABS: BLOOD UREA NITROGEN 6.6 mg/dL (7-18); MAGNESIUM 2.1 mg/dL (1.8-2.4)
[2023-08-06 15:24] LABS: CREATININE 0.3 mg/dL (0.55-1.3)
[2023-08-06 15:26] LABS: BILIRUBIN,TOTAL 0.6 mg/dL (0.2-1); TOT PROT 6.6 g/dl (6.4-8.2)
[2023-08-06 15:33] LABS: ALBUMIN 2.9 g/dl (3.4-5.0)
[2023-08-06 16:32] LABS: EPI CELLS 5 /uL (0-25.1); HYALINE CASTS 0 /uL (0-3.1); URINE APPEARANCE CLEAR; URINE BACTERIA 5 /uL (0-1359); URINE BILIRUBIN NEGATIVE (NEGATIVE); URINE COLOR YELLOW; URINE GLUCOSE (UA) 2+ (NEGATIVE); URINE KETONE 3+ (NEGATIVE); URINE LEUK ESTERASE NEGATIVE (NEGATIVE); URINE NITRITE NEGATIVE (NEGATIVE); URINE PROTEIN 1+ (NEGATIVE); URINE RBC 14 /uL (0-23.9); URINE UROBILINOGEN 0.2 mg/dL (0.2-1.0); URINE WBC 14 /uL (0-25.8)
== END 2023-08-06 17:58 | disposition home or self-care (01) ==
LOC: JER 13:16
DX: R19.7 Diarrhea, unspecified (principal)
CPT/HCPCS: 36415; 80053; 81003; 83605; 83735; 84100; 85025; 99283-25

== ENCOUNTER 2023-08-22 16:57 | Inpatient (IN) | payer OTHER ==
[2023-08-22 17:03] VITALS: BMI 22.1
[2023-08-22 19:16] LABS: BASO % 0.3 % (0-2.0); EOS % 0.6 % (0-4.5); HEMATOCRIT 37.1 % (32.4-45.2); HEMOGLOBIN 12.3 GM/dL (10.7-15.3); LYMPH % 45.6 % (8-40); MCH 31.9 pg (25.7-33.7); MCHC 33.3 g/dl (32.0-36.0); MEAN CELL VOLUME 95.7 fl (80-96); MEAN PLT VOLUME 7.4 fl (7.5-11.1); MONO % 10.1 % (3.8-10.2); NEUT % 43.4 % (42.8-82.8); PLATELET COUNT 435 10^3/uL (134-434); RBC 3.88 M/mm3 (3.60-5.2); RDW 14.5 % (11.6-15.6); WHITE BLOOD COUNT 10.8 K/mm3 (4.0-10.0)
[2023-08-22 19:26] LABS: INR 1.1 (0.83-1.09); PROTHROMBIN TIME (PATIENT) 12.4 SEC (9.7-13.0)
[2023-08-22 19:28] LABS: ACTIVATED PTT 31.1 SECONDS (25.2-36.5)
[2023-08-22] MEDS: ACETAMINOPHEN 1000 MG/100 ML BAG IVPB ONE (19:32)
[2023-08-22] MEDS ORDERED: ACETAMINOPHEN INJECTION 100 ML IVPB ONE (19:33)
[2023-08-22 19:37] LABS: POTASSIUM 3.9 mmol/L (3.5-5.1)
[2023-08-22 19:42] LABS: BLOOD UREA NITROGEN 8.8 mg/dL (7-18)
[2023-08-22 19:43] LABS: ALBUMIN 2.9 g/dl (3.4-5.0); MAGNESIUM 1.8 mg/dL (1.8-2.4)
[2023-08-22 19:45] LABS: PHOSPHOROUS 3.4 mg/dL (2.5-4.9)
[2023-08-22 19:46] LABS: CREATININE 0.4 mg/dL (0.55-1.3)
[2023-08-22 19:47] LABS: BILIRUBIN,TOTAL 0.5 mg/dL (0.2-1); TOT PROT 6.4 g/dl (6.4-8.2)
[2023-08-22 22:29] LABS: PH,URINE 5.5 (5.0-8.0); URINE APPEARANCE CLEAR; URINE BILIRUBIN NEGATIVE (NEGATIVE); URINE COLOR YELLOW; URINE GLUCOSE (UA) NEGATIVE (NEGATIVE); URINE KETONE 2+ (NEGATIVE); URINE LEUK ESTERASE NEGATIVE (NEGATIVE); URINE NITRITE NEGATIVE (NEGATIVE); URINE PROTEIN NEGATIVE (NEGATIVE)
[2023-08-23] MEDS ORDERED: ACETAMINOPHEN INJECTION 100 ML IVPB ONE ×5 (00:47→20:10)
[2023-08-23] MEDS: ACETAMINOPHEN 1000 MG/100 ML BAG IVPB ONE (00:55)
[2023-08-23] MEDS ORDERED: ONDANSETRON 4 MG/2 ML VIAL IVPUSH PRN (04:51)
[2023-08-23] MEDS: GABAPENTIN 400 MG CAPSULE PO SCH ×2 (05:05→06:18)
[2023-08-23] MEDS: SODIUM CHLORIDE 1,000 ML IV SCH ×2 (05:33→21:29)
[2023-08-23] MEDS ORDERED: GABAPENTIN 400 MG CAPSULE ONE (06:12)
[2023-08-23] MEDS: ACETAMINOPHEN 1000 MG/100 ML BAG IVPB PRN ×2 (06:23→13:32)
[2023-08-23] MEDS: INSULIN ASPART SLIDING SCALE (NOVOLOG) 1 VIAL SQ SCH ×2 (07:33→22:50)
[2023-08-23] MEDS ORDERED: METOPROLOL TARTRATE 5 MG/5 ML VIAL IVPB PRN ×2 (07:35→20:20)
[2023-08-23] MEDS ORDERED: MORPHINE SULFATE 2 MG/ML SYRINGE ONE (07:51)
[2023-08-23] MEDS: MORPHINE SULFATE 2 MG/ML SYRINGE IVPUSH ONE (08:04)
[2023-08-23] MEDS ORDERED: metoPROLOL SUCCINATE 25 MG TAB.SR.24H (FP) PO SCH (10:00)
[2023-08-23] MEDS ORDERED: ASPIRIN COATED 81 MG TABLET.EC PO SCH (10:00)
[2023-08-23] MEDS ORDERED: amLODIPine BESYLATE 5 MG TABLET (FP) PO SCH (10:00)
[2023-08-23] MEDS ORDERED: CLOPIDOGREL BISULFATE 75 MG TABLET (FP) PO SCH (10:00)
[2023-08-23] MEDS ORDERED: LISINOPRIL 10 MG TABLET PO SCH (10:00)
[2023-08-23] MEDS ORDERED: PROPOFOL 20 ML ONE (16:17)
[2023-08-23] MEDS ORDERED: SUCCINYLCHOLINE CHLORIDE 200 MG/10 ML SYRINGE ONE (16:17)
[2023-08-23] MEDS ORDERED: HEPARIN NA (PORCINE) 5,000 UNITS/ML 1ML VIAL ONE (16:23)
[2023-08-23] MEDS ORDERED: CEFOXITIN SODIUM 2 GM IVPB ONE (16:23)
[2023-08-23] MEDS ORDERED: ROCURONIUM BROMIDE 50 MG/5 ML SYRINGE ONE (17:11)
[2023-08-23] MEDS: cefOXitin SODIUM 1 GM VIAL (RESTRICTED TO ID) IVPB ONE (17:20)
[2023-08-23] MEDS ORDERED: DEXAMETHASONE SOD PHOSPHATE 4 MG/1 ML VIAL ONE (17:25)
[2023-08-23] MEDS ORDERED: ONDANSETRON 4 MG/2 ML VIAL ONE ×3 (17:25→18:36)
[2023-08-23] MEDS ORDERED: HYDROmorphone HCl 2 MG/ML VIAL ONE (17:48)
[2023-08-23] MEDS ORDERED: INDOCYANINE GREEN 25 MG/10 ML VIAL IVPUSH ONE (18:32)
[2023-08-23] MEDS ORDERED: NEOSTIGMINE METHYLSULFATE 0.5 MG/1 ML - 10 ML MDV ONE (18:35)
[2023-08-23] MEDS ORDERED: GLYCOPYRROLATE 0.2 MG/1 ML VIAL ONE (18:35)
[2023-08-23] MEDS: BACITRACIN ZINC 15 GM TUBE TOPICAL OINTMENT TP ONE (19:35)
[2023-08-23] MEDS ORDERED: BACITRACIN ZINC 15 GM TUBE TOPICAL OINTMENT ONE (19:36)
[2023-08-23] MEDS ORDERED: LACTATED RINGERS SOLUTION 1,000 ML IV SCH (20:15)
[2023-08-23] MEDS ORDERED: ACETAMINOPHEN 1000 MG/100 ML BAG IVPB PRN (20:20)
[2023-08-23] MEDS ORDERED: HYDROmorphone HCL CARPU-JECT 2 MG/1 ML DISP.SYRIN ONE (20:42)
[2023-08-23] MEDS: HYDROmorphone HCl 2 MG/ML VIAL IVPUSH PRN (21:20)
[2023-08-23] MEDS ORDERED: HYDROmorphone *PCA* 10MG/50ML DISP.SYRIN ONE (21:40)
[2023-08-23] MEDS: HYDROmorphone *PCA* 10MG/50ML DISP.SYRIN PCA SCH (21:43)
[2023-08-23] MEDS ORDERED: LATANOPROST 0.005% OPHTH SOLN 2.5ML BOTTLE OU SCH (22:00)
[2023-08-23] MEDS ORDERED: ATORVASTATIN CA 10 MG TABLET (FP) PO SCH (22:00)
[2023-08-24] MEDS: CEFOXITIN SODIUM 2 GM in DEXTROSE 5%-WATER - 100 ML IVPB SCH (02:36)
[2023-08-24] MEDS: LATANOPROST 0.005% OPHTH SOLN 2.5ML BOTTLE OU SCH (03:23)
[2023-08-24] MEDS: MELATONIN 5 MG TABLETS PO PRN (03:33)
[2023-08-24 08:26] LABS: BASO % 0.1 % (0-2.0); HEMATOCRIT 34.6 % (32.4-45.2); HEMOGLOBIN 11.3 GM/dL (10.7-15.3); MCHC 32.8 g/dl (32.0-36.0); MEAN CELL VOLUME 97.6 fl (80-96); MEAN PLT VOLUME 7.7 fl (7.5-11.1); MONO % 7.5 % (3.8-10.2); NEUT % 76.4 % (42.8-82.8); PLATELET COUNT 432 10^3/uL (134-434); RBC 3.54 M/mm3 (3.60-5.2); RDW 14.6 % (11.6-15.6); WHITE BLOOD COUNT 13.1 K/mm3 (4.0-10.0)
[2023-08-24 08:27] LABS: POTASSIUM 3.2 mmol/L (3.5-5.1)
[2023-08-24 08:35] LABS: BLOOD UREA NITROGEN 6.7 mg/dL (7-18); CALCIUM 8.2 mg/dL (8.5-10.1); MAGNESIUM 1.7 mg/dL (1.8-2.4)
[2023-08-24 08:36] LABS: ALBUMIN 2.2 g/dl (3.4-5.0)
[2023-08-24 08:37] LABS: CREATININE 0.3 mg/dL (0.55-1.3)
[2023-08-24 08:40] LABS: BILIRUBIN,TOTAL 0.6 mg/dL (0.2-1); TOT PROT 5.2 g/dl (6.4-8.2)
[2023-08-24] MEDS: MAGNESIUM SULFATE IN WATER 2 GM/50 ML IVPB IVPB ONE (10:45)
[2023-08-24] MEDS: POTASSIUM CHLORIDE ORAL LIQUID 20 MEQ/15 ML PO ONE (10:45)
[2023-08-24] MEDS: ACETAMINOPHEN 1000 MG/100 ML BAG IVPB SCH (13:10)
[2023-08-24] MEDS: LACTATED RINGERS SOLUTION 1,000 ML/1,000 ML INFUS.BAG IV ONE (16:56)
[2023-08-24] MEDS: oxyCODONE HCL 5 MG TABLET PO PRN (18:28)
[2023-08-24] MEDS: FAMOTIDINE 20 MG TABLET PO SCH (22:25)
[2023-08-24] MEDS: amLODIPine BESYLATE 5 MG TABLET (FP) PO SCH (22:25)
[2023-08-25] MEDS: ONDANSETRON 4 MG/2 ML VIAL IVPUSH PRN (01:56)
[2023-08-25 09:02] LABS: HEMATOCRIT 39.6 % (32.4-45.2); MCH 31.6 pg (25.7-33.7); MCHC 32.8 g/dl (32.0-36.0); MEAN CELL VOLUME 96.4 fl (80-96); MEAN PLT VOLUME 8.1 fl (7.5-11.1); PLATELET COUNT 431 10^3/uL (134-434); RBC 4.11 M/mm3 (3.60-5.2); WHITE BLOOD COUNT 17.1 K/mm3 (4.0-10.0)
[2023-08-25] MEDS: metoPROLOL SUCCINATE 25 MG TAB.SR.24H (FP) PO SCH (09:11)
[2023-08-25] MEDS: LISINOPRIL 10 MG TABLET PO SCH (09:11)
[2023-08-25] MEDS: CLOPIDOGREL BISULFATE 75 MG TABLET (FP) PO SCH (09:11)
[2023-08-25] MEDS: ASPIRIN COATED 81 MG TABLET.EC PO SCH (09:11)
[2023-08-25] MEDS: GABAPENTIN 400 MG CAPSULE PO SCH (09:13)
[2023-08-25] MEDS ORDERED: GABAPENTIN 400 MG CAPSULE PO SCH (10:00)
[2023-08-25] MEDS ORDERED: LISINOPRIL 10 MG TABLET PO SCH (10:00)
[2023-08-25] MEDS ORDERED: CLOPIDOGREL BISULFATE 75 MG TABLET (FP) PO SCH (10:00)
[2023-08-25] MEDS ORDERED: ASPIRIN COATED 81 MG TABLET.EC PO SCH (10:00)
[2023-08-25] MEDS ORDERED: amLODIPine BESYLATE 5 MG TABLET (FP) PO SCH ×2 (10:00)
[2023-08-25] MEDS ORDERED: metoPROLOL SUCCINATE 25 MG TAB.SR.24H (FP) PO SCH (10:00)
[2023-08-25 11:00] LABS: ANISOCYTOSIS 0; MACROCYTOSIS 0
[2023-08-25] MEDS: METOCLOPRAMIDE HCL INJECTION 10 MG/2 ML VIAL IVPUSH ONE (11:49)
[2023-08-25] MEDS: MEROPENEM 1 GM in DEXTROSE 5%-WATER 100 ML IVPB ONE (13:31)
[2023-08-25] MEDS: AMINO ACIDS 4.25%/D5W 1,000 ML IV SCH (13:32)
[2023-08-25] MEDS ORDERED: KCL 10 MEQ IVPB 10 MEQ/100 ML INFUS.BAG IVPB SCH (17:45)
[2023-08-25 21:58] LABS: POTASSIUM 3.2 mmol/L (3.5-5.1)
[2023-08-25] MEDS ORDERED: ATORVASTATIN CA 10 MG TABLET (FP) PO SCH (22:00)
[2023-08-25 22:02] LABS: ALBUMIN 1.9 g/dl (3.4-5.0); BLOOD UREA NITROGEN 8.3 mg/dL (7-18)
[2023-08-25 22:05] LABS: CREATININE 0.3 mg/dL (0.55-1.3)
[2023-08-25 22:06] LABS: BILIRUBIN,TOTAL 0.4 mg/dL (0.2-1)
[2023-08-25 22:07] LABS: TOT PROT 5.1 g/dl (6.4-8.2)
[2023-08-25] MEDS: MEROPENEM 1 GM in DEXTROSE 5%-WATER 100 ML IVPB SCH (23:29)
[2023-08-25] MEDS: ATORVASTATIN CA 10 MG TABLET (FP) PO SCH (23:29)
[2023-08-26] MEDS ORDERED: oxyCODONE HCL 5 MG TABLET PO PRN (07:20)
[2023-08-26] MEDS ORDERED: MELATONIN 5 MG TABLETS PO PRN (07:20)
[2023-08-26 07:45] LABS: BASO % 0.4 % (0-2.0); EOS % 0.1 % (0-4.5); HEMATOCRIT 31.6 % (32.4-45.2); HEMOGLOBIN 10.4 GM/dL (10.7-15.3); LYMPH % 22.3 % (8-40); MCH 31.8 pg (25.7-33.7); MEAN CELL VOLUME 96.6 fl (80-96); MEAN PLT VOLUME 7.8 fl (7.5-11.1); MONO % 8.1 % (3.8-10.2); NEUT % 69.1 % (42.8-82.8); PLATELET COUNT 381 10^3/uL (134-434); RBC 3.27 M/mm3 (3.60-5.2); RDW 14.6 % (11.6-15.6); WHITE BLOOD COUNT 14.3 K/mm3 (4.0-10.0)
[2023-08-26 07:59] LABS: POTASSIUM 3.2 mmol/L (3.5-5.1)
[2023-08-26 08:05] LABS: CALCIUM 7.8 mg/dL (8.5-10.1); MAGNESIUM 1.7 mg/dL (1.8-2.4)
[2023-08-26 08:06] LABS: ALBUMIN 1.8 g/dl (3.4-5.0)
[2023-08-26 08:09] LABS: BILIRUBIN,TOTAL 0.5 mg/dL (0.2-1); CREATININE 0.3 mg/dL (0.55-1.3)
[2023-08-26 08:12] LABS: TOT PROT 4.7 g/dl (6.4-8.2)
[2023-08-26] MEDS: ASPIRIN COATED 81 MG TABLET.EC PO SCH (10:25)
[2023-08-26] MEDS: FAMOTIDINE 20 MG TABLET PO SCH (10:25)
[2023-08-26] MEDS: LISINOPRIL 10 MG TABLET PO SCH (10:25)
[2023-08-26] MEDS: amLODIPine BESYLATE 5 MG TABLET (FP) PO SCH (10:25)
[2023-08-26] MEDS: CLOPIDOGREL BISULFATE 75 MG TABLET (FP) PO SCH (10:25)
[2023-08-26] MEDS: metoPROLOL SUCCINATE 25 MG TAB.SR.24H (FP) PO SCH (10:26)
[2023-08-26] MEDS ORDERED: hydrALAZINE HCL 20 MG/ML VIAL IVPUSH PRN (10:27)
[2023-08-26] MEDS: MAGNESIUM 1GM/D5W - 1 GM/100 ML IVPB IVPB ONE (11:07)
[2023-08-26] MEDS: AMINO ACIDS 4.25%/D5W 1,000 ML IV SCH (12:48)
[2023-08-26] MEDS ORDERED: GABAPENTIN 400 MG CAPSULE PO SCH (14:00)
[2023-08-26] MEDS: INSULIN ASPART SLIDING SCALE (NOVOLOG) 1 VIAL SQ SCH (14:14)
[2023-08-26] MEDS: KCL 10 MEQ IVPB 10 MEQ/100 ML INFUS.BAG IVPB SCH (15:35)
[2023-08-26] MEDS: ACETAMINOPHEN 1000 MG/100 ML BAG IVPB ONE (19:48)
[2023-08-26] MEDS ORDERED: ATORVASTATIN CA 10 MG TABLET (FP) PO SCH (22:00)
[2023-08-26] MEDS: LATANOPROST 0.005% OPHTH SOLN 2.5ML BOTTLE OU SCH (22:04)
[2023-08-26] MEDS: MELATONIN 5 MG TABLETS PO PRN (22:30)
[2023-08-26] MEDS: ONDANSETRON 4 MG/2 ML VIAL IVPUSH PRN (22:50)
[2023-08-27 07:07] LABS: HEMATOCRIT 30.8 % (32.4-45.2); HEMOGLOBIN 10.3 GM/dL (10.7-15.3); MCHC 33.4 g/dl (32.0-36.0); MEAN PLT VOLUME 7.8 fl (7.5-11.1); PLATELET COUNT 351 10^3/uL (134-434); RBC 3.21 M/mm3 (3.60-5.2); RDW 14.2 % (11.6-15.6); WHITE BLOOD COUNT 12.4 K/mm3 (4.0-10.0)
[2023-08-27 07:21] LABS: POTASSIUM 3.1 mmol/L (3.5-5.1)
[2023-08-27 07:26] LABS: BLOOD UREA NITROGEN 6.4 mg/dL (7-18); CALCIUM 7.8 mg/dL (8.5-10.1)
[2023-08-27 07:27] LABS: ALBUMIN 1.7 g/dl (3.4-5.0); MAGNESIUM 1.7 mg/dL (1.8-2.4)
[2023-08-27 07:30] LABS: CREATININE 0.2 mg/dL (0.55-1.3)
[2023-08-27 07:31] LABS: BILIRUBIN,TOTAL 0.5 mg/dL (0.2-1)
[2023-08-27 07:32] LABS: TOT PROT 4.6 g/dl (6.4-8.2)
[2023-08-27] MEDS: MAGNESIUM 1GM/D5W - 1 GM/100 ML IVPB IVPB ONE (08:59)
[2023-08-27 09:20] LABS: ANISOCYTOSIS 0; MACROCYTOSIS 0
[2023-08-27] MEDS: KCL 10 MEQ IVPB 10 MEQ/100 ML INFUS.BAG IVPB SCH (09:42)
[2023-08-27] MEDS: POTASSIUM CHLORIDE TABS 20 MEQ TABLET.ER (FP) PO SCH (22:58)
[2023-08-28 06:37] LABS: HEMATOCRIT 31.8 % (32.4-45.2); HEMOGLOBIN 10.7 GM/dL (10.7-15.3); MCH 32.6 pg (25.7-33.7); MCHC 33.6 g/dl (32.0-36.0); MEAN PLT VOLUME 7.7 fl (7.5-11.1); PLATELET COUNT 336 10^3/uL (134-434); RBC 3.27 M/mm3 (3.60-5.2); RDW 14.1 % (11.6-15.6)
[2023-08-28 06:57] LABS: POTASSIUM 3.5 mmol/L (3.5-5.1)
[2023-08-28 07:02] LABS: MAGNESIUM 1.7 mg/dL (1.8-2.4)
[2023-08-28 07:03] LABS: CALCIUM 7.5 mg/dL (8.5-10.1)
[2023-08-28 07:04] LABS: ALBUMIN 1.6 g/dl (3.4-5.0); BLOOD UREA NITROGEN 5.6 mg/dL (7-18)
[2023-08-28 07:06] LABS: PHOSPHOROUS 1.8 mg/dL (2.5-4.9)
[2023-08-28 07:07] LABS: CREATININE 0.2 mg/dL (0.55-1.3)
[2023-08-28 07:08] LABS: BILIRUBIN,TOTAL 0.4 mg/dL (0.2-1)
[2023-08-28 07:09] LABS: TOT PROT 4.8 g/dl (6.4-8.2)
[2023-08-28] MEDS: NAPH,MB-DB/K PH,MBDB POWDER PACKET PO ONE (11:24)
[2023-08-28] MEDS: MAGNESIUM 2GM/50ML STERILE WATER IVPB IVPB ONE (11:24)
[2023-08-28] MEDS: ACETAMINOPHEN 325 MG TABLET (FP) PO SCH (11:26)
[2023-08-28 12:53] LABS: N-TERMINAL BNP 549.4 pg/ml (5-450)
[2023-08-28 13:19] LABS: ANISOCYTOSIS 0; MACROCYTOSIS 0
[2023-08-28 13:21] LABS: PLATELET ESTIMATE ADEQUATE
[2023-08-29 06:32] LABS: HEMATOCRIT 31.7 % (32.4-45.2); HEMOGLOBIN 10.5 GM/dL (10.7-15.3); MCH 32.5 pg (25.7-33.7); MCHC 33.2 g/dl (32.0-36.0); MEAN CELL VOLUME 97.8 fl (80-96); MEAN PLT VOLUME 7.8 fl (7.5-11.1); PLATELET COUNT 365 10^3/uL (134-434); RBC 3.24 M/mm3 (3.60-5.2); RDW 14.3 % (11.6-15.6); WHITE BLOOD COUNT 10.7 K/mm3 (4.0-10.0)
[2023-08-29 07:02] LABS: POTASSIUM 3.9 mmol/L (3.5-5.1)
[2023-08-29 07:07] LABS: ALBUMIN 1.6 g/dl (3.4-5.0); BLOOD UREA NITROGEN 6.6 mg/dL (7-18); MAGNESIUM 2.1 mg/dL (1.8-2.4)
[2023-08-29 07:09] LABS: CREATININE 0.2 mg/dL (0.55-1.3)
[2023-08-29 07:11] LABS: BILIRUBIN,TOTAL 0.4 mg/dL (0.2-1); PHOSPHOROUS 2.6 mg/dL (2.5-4.9); TOT PROT 4.9 g/dl (6.4-8.2)
[2023-08-29] MEDS: ENOXAPARIN NA (PORCINE) 40 MG/0.4 ML DISP.SYRIN SQ SCH (09:35)
[2023-08-29 09:37] LABS: PLATELET ESTIMATE ADEQUATE
[2023-08-29 12:53] VITALS: RESP 19
[2023-08-29 14:01] VITALS: BP 112/55; PULSE 100; TEMP 98.8
== END 2023-08-29 18:26 | disposition home or self-care (01) | DRG 330 ==
LOC: JER 16:57 → JERBED 08-23 01:45 → J6S 08-23 22:41 → J4S 08-25 15:41
PROVIDERS: ADMIT Internal Medicine; ATTEND Internal Medicine
PROC: 0DNU0ZZ Release Omentum, Open Approach (ICD-10-PCS; 2023-08-23)
PROC: 0DTF0ZZ Resection of Right Large Intestine, Open Approach (ICD-10-PCS; principal; 2023-08-23 16:00)
PROC: 0DBB0ZZ Excision of Ileum, Open Approach (ICD-10-PCS; 2023-08-23 16:00)
DX: K56.600 Partial intestinal obstruction, unspecified as to cause (principal); K91.89 Other postprocedural complications and disorders of digestive system; E11.9 Type 2 diabetes mellitus without complications; I10 Essential (primary) hypertension; I73.9 Peripheral vascular disease, unspecified; D72.829 Elevated white blood cell count, unspecified; R33.9 Retention of urine, unspecified; K56.7 Ileus, unspecified; R50.82 Postprocedural fever; Y83.9 Surgical procedure, unspecified as the cause of abnormal reaction of the patient, or of later complication, without mention of misadventure at the time of the procedure; E87.6 Hypokalemia; E83.42 Hypomagnesemia; E83.39 Other disorders of phosphorus metabolism; K66.0 Peritoneal adhesions (postprocedural) (postinfection); I25.10 Atherosclerotic heart disease of native coronary artery without angina pectoris; Z95.1 Presence of aortocoronary bypass graft; E78.5 Hyperlipidemia, unspecified; E11.40 Type 2 diabetes mellitus with diabetic neuropathy, unspecified; E11.65 Type 2 diabetes mellitus with hyperglycemia
CPT/HCPCS: 0241U-QW; 36415; 71045-TC-FY; 74018-TC-FY; 74177-TC; 80053; 80061; 81003; 82962; 83036; 83605; 83690; 83735; 83880; 84100; 84443; 84484; 85025; 85610; 85730; 86140; 86850; 86900; 86901; 87040; 87086; 88307-TC; 93005; 93010; 93971-TC; 94010; 94760; 97116-GP; 97162-GP; 99285-25; J0131; J1644; Q9967